=== PATIENT | female | born 2000 | race Caucasian/White ===

== ENCOUNTER 2021-05-10 22:22 | Inpatient (IN) | payer MEDICAID, SELFPAY ==
[2021-05-10] VITALS (12 sets, daily range): BP systolic 88–171; BP diastolic 41–104; PULSE 64–112; O2SAT 89–100
--- NOTE | 2021-05-10 22:22 | LDADM ---
This patient, Madeline Cornell, was admitted to Labor/Delivery/Recovery 106 on 05/10/21 at 23:06. Plans for labor, pain management and were discussed with patient. Patient/family oriented to hospital policies and general routines including ID bracelet, bed and alarms, visiting hours, pain management, procedures, bathroom and other care routines, personal items, smoking policy, room service/diet and guest tray routines, security routines, and visiting hours. Patient/Family are encouraged to report perceived risks to care and to ask questions if they do not understand what they are told or what they should do. See OBIX for further documentation.
[2021-05-11] VITALS (27 sets, daily range): BP systolic 118–146; BP diastolic 69–104; PULSE 62–139; RESP 16–18; TEMP 36.7–37.2; O2SAT 93–100; BMI 37.3
[2021-05-11 00:32] LABS: Amphetamine Screen Urine Negative (Negative); Barbiturate Screen Urine Negative (Negative); Benzodiazepines Screen Urine Negative (Negative); Cannabinoid Screen Urine Negative (Negative); Cocaine Screen Urine Negative (Negative); Methadone Screen Urine Negative (Negative); Opiate Screen Urine Negative (Negative); Phencyclidine Screen Urine Negative (Negative)
--- NOTE | 2021-05-11 01:26 | PM.OBPRVD ---
OB - Delivery Note Procedure Delivery date: 05/11/21 Procedure: vaginal delivery events: No Care (no care in office since 02/07, limited prior to that due to transportation and issues in home per pt) Induction method: none Delivery monitor: external FHT and external uterine Route of delivery: Episiotomy description: None Laceration Description: None Specimen: Yes Quantitative Blood Loss (ml): 120 Anesthesia type: Epidural Baby Date of : 05/11/21 Time of : 01:14 Weeks of gestation at delivery: 40 Infant gender: Male Weight (pounds): 6 Weight (ounces): 10 presentation: vertex Placenta delivery description: Spontaneous cord vessel description: 3 Vessels, Clamped/Cut and Delayed Cord Clamping score one minute: 8 score five minutes: 9 Narrative: CNM at bs seconds after delivery of male infant, VSS and delayed cord clamping, examination of perineum reveals .5-1mm indurated lesion, tender to touch, no visible weeping of fluid, mother and baby in stable condition
--- NOTE | 2021-05-11 01:36 | WPDOBADMIT ---
Obstetrics - Admit Note Admission Note: record reviewed. No pertinent additions to the history and/or any subsequent changes in the physical findings that are not consistent with the expected course of the were found. 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 None.
[2021-05-11 01:42] LABS: Basophils Percent Auto 0.3 % (0.2-1.2); Eosinophils Percent Auto 0.1 % (0-4.4); Hematocrit 38.2 % (37.0-47.0); Immature Granulocyte Absolute 0.08 K/mm3 (0.00-0.031); Immature Granulocyte Percent A 0.6 % (0-0.5); Lymphocytes Absolute Auto 1.43 K/mm3 (0.9-3.2); Lymphocytes Percent Auto 10.6 % (18.3-44.2); Mean Corpuscular HGB Conc 31.4 g/dl (32-36); Mean Corpuscular Hemoglobin 25.8 pg (26-34); Mean Platelet Volume 12.9 fl (7.4-10.4); Monocytes Absolute Auto 0.6 K/mm3 (0.1-0.6); Monocytes Percent Auto 4.6 % (2.6-8.5); Neutrophils Absolute Auto 11.3 K/mm3 (1.3-6.7); Neutrophils Percent Auto 83.8 % (45.5-73.1); Platelet Count Result 255 k/mm3 (150-375); Red Blood Count 4.66 M/mm3 (4.2-5.4); Red Cell Distribution Width 13.2 % (11.5-14.5); White Blood Count 13.5 K/mm3 (4.5-10.0)
[2021-05-11] MEDS: OXYTOCIN 30 UNITS/NS 500 ML 30 UNITS/500 ML BAG 125 UNITS IV CONT (02:08)
[2021-05-11] MEDS: WITCH HAZEL 40 PADS 1 PAD TOPICAL (03:34)
[2021-05-11] MEDS: BENZOCAINE 20% AER SPR (*SP) 56 GM CAN 1 SPRAY TOPICAL (03:34)
--- NOTE | 2021-05-11 03:51 | OBPPTRN ---
Patient transferred to post room #285 via wheelchair. Support person present. Oriented to unit, room, information board, rooming in, admission packet and security measures. Patient verbalizes understanding.
[2021-05-11] MEDS: IBUPROFEN 600 MG TABLET PO ×2 (08:23→19:53)
[2021-05-11] MEDS: MULTIVIT/MIN/PREN/FOL AC/IRON TABLET 1 TAB PO (08:23)
[2021-05-11] MEDS: DOCUSATE SODIUM 100 MG CAPSULE PO (08:23)
[2021-05-11] MEDS: valACYclovir HCL 500 MG TABLET 1000 MG PO ×2 (08:24→19:53)
--- NOTE | 2021-05-11 10:59 | PCCCNOTE ---
Care Coordination Note. Patient referred to CC for poor care and possible home issues. Met with pt. and her mother at bedside. Pt. reports no home issues, but that care had to do with financial issues. Pt. states her OB office could not find that she was active with Medicaid and wanted payment upfront for visits that she could not afford. Pt. reports this happened several times until they could figure it out. She is supposed to have [place], but still showing just Medicaid here. She reports plans to return home with FOB and her 2 year old. She states he and her mother are supportive. She has all necessary baby care items and is setup with [facility]. She did take community resource information. She plans to switch her 2 year old from [place] land commissioner to doctor Fraser here. RN aware of above conversation. No further CC needs.
[2021-05-12] VITALS: BP 122/81; PULSE 73; RESP 16; TEMP 36.8; O2SAT 100
[2021-05-12 05:12] LABS: Hematocrit 31.2 % (37.0-47.0); Hemoglobin 9.8 g/dL (12.0-15.0)
[2021-05-12 07:40] VITALS: BP 143/83; PULSE 95; RESP 16; TEMP 36.4; O2SAT 99
--- NOTE | 2021-05-12 07:56 | P.PNOB_ITS ---
OB - PN: Subj Subjective Date/time seen: 05/12/21 07:56 Interval history: pt doing well awaiting hsv results Patient comments: no complaints [place] baby status: doing well OB - PN: Obj Data Labs CBC & Chem 7: 05/12/21 04:00 Labs: Laboratory Results - last 24 hr 05/12/21 04:00 Hgb 9.8 L Hct 31.2 L OB - PN A/P Plan day: 1 Plan: routine care Time Spent With Patient Time: Total time spent is greater than 50% in coordination of care (as documented) at patient's floor/unit and/or counseling patient: Review of Systems Review of Systems: All systems reviewed & are unremarkable except as noted in HPI and below Exam Const: General: cooperative Orientation/consciousness: patient oriented x3 Psych: Affect: normal affect Thought content: Yes Normal thought content present Insight: Good insight present (Psych)
[2021-05-12 08:00] VITALS: PULSE 95; RESP 16; O2SAT 99
[2021-05-12 08:52] LABS: Rapid Plasma Reagin Non-Reactive (NonReactive)
[2021-05-12] MEDS: DOCUSATE SODIUM 100 MG CAPSULE PO ×2 (09:21→16:35)
[2021-05-12] MEDS: valACYclovir HCL 500 MG TABLET 1000 MG PO ×2 (09:21→20:48)
[2021-05-12] MEDS: POLYSACCHARIDE IRON COMPLEX 150 MG CAPSULE PO ×2 (09:21→16:35)
[2021-05-12] MEDS: ACETAMINOPHEN 325 MG TABLET 650 MG PO (09:21)
[2021-05-12 21:00] VITALS: BP 128/83; PULSE 75; RESP 16; TEMP 36.9
--- NOTE | 2021-05-13 07:13 | PM.OBPNVD ---
OB - PN: Subj Subjective Date/time seen: 05/13/21 07:13 Interval history: pt doing well awaiting hsv results Patient comments: no complaints [place] baby status: doing well OB - PN: Obj Data Labs CBC & Chem 7: 05/12/21 04:00 Labs: Laboratory Results - last 24 hr 05/11/21 01:26 RPR Non-reactive OB - PN A/P Plan day: 2 Plan: routine care and discharge home (Pt has had 3 elevated blood pressures. D/t poor care I would like to keep for the 72 hour stay recommended with GHTN.) Time Spent With Patient Time: Total time spent is greater than 50% in coordination of care (as documented) at patient's floor/unit and/or counseling patient: Time with patient: less than 15 minutes Review of Systems Review of Systems: All systems reviewed & are unremarkable except as noted in HPI and below Exam Narrative: Fundus firm and vaginal flow controlled. No lower ext redness, warmth, or edema. Negative homans. Denies h/a, v/d or e/p. Reflexes normal. Const: General: comfortable Chest: Breast/axilla inspection: normal inspection of the breasts Resp: Effort & Inspection: normal respiratory effort Cardio: Rate: regular rate GI: GI Palp: Yes Soft to palpation Psych: Appearance: grossly normal Affect: normal affect Attitude: cooperative Thought content: Yes Normal thought content present Judgement: Good judgement present (Psych)
[2021-05-13 07:30] VITALS: BP 135/85; PULSE 87; RESP 16; TEMP 36.8
[2021-05-13] MEDS: DOCUSATE SODIUM 100 MG CAPSULE PO (07:38)
[2021-05-13] MEDS: IBUPROFEN 600 MG TABLET PO (07:38)
[2021-05-13] MEDS: POLYSACCHARIDE IRON COMPLEX 150 MG CAPSULE PO (07:38)
[2021-05-13] MEDS: valACYclovir HCL 500 MG TABLET 1000 MG PO ×2 (07:39→22:45)
[2021-05-13 08:07] LABS: Mean Corpuscular HGB Conc 31.3 g/dl (32-36); Mean Corpuscular Hemoglobin 25.9 pg (26-34); Mean Corpuscular Volume 82.9 fl (80-100); Mean Platelet Volume 11.2 fl (7.4-10.4); Platelet Count Result 178 k/mm3 (150-375); Red Blood Count 3.86 M/mm3 (4.2-5.4); Red Cell Distribution Width 13.4 % (11.5-14.5)
[2021-05-13 08:17] LABS: Alanine Aminotransferase 26 U/L (4-35); Albumin Level 3.4 g/dL (3.5-5.1); Alkaline Phosphatase 177 U/L (38-126); Anion Gap 8 mmol/L (8-16); Aspartate Amino Transferase 31 U/L (14-36); Bilirubin,Total < 0.1 mg/dL (0.2-1.3); Blood Urea Nitrogen 8 mg/dL (7-17); Calcium 9.1 mg/dL (8.4-10.2); Carbon Dioxide 25 mmol/L (22-30); Chloride 108 mmol/L (98-107); Estimated CRCL calculation 136 ml/min; Estimated Glomerular Filt Rate > 60; Glucose 101 mg/dL (65-110); Potassium 3.8 mmol/L (3.4-5.0); Sodium 141 mmol/L (137-145); Uric Acid 6.2 mg/dL (2.5-7.5)
[2021-05-13 20:30] VITALS: BP 130/94; PULSE 93; RESP 18; TEMP 36.8; O2SAT 99
[2021-05-14 08:00] VITALS: BP 129/84; PULSE 77; RESP 18; TEMP 36.9; O2SAT 97
[2021-05-14] MEDS: valACYclovir HCL 500 MG TABLET 1000 MG PO (08:27)
--- NOTE | 2021-05-14 09:31 | PM.OBPNVD ---
OB - PN: Subj Subjective Date/time seen: 05/14/21 09:32 Interval history: pt doing well awaiting hsv results Patient comments: no complaints baby status: doing well OB - PN: Obj Data Labs CBC & Chem 7: 05/13/21 08:00 05/13/21 08:00 OB - PN A/P Plan day: 3 Plan: routine care and discharge home (F/U in 1 week for bp check) Time Spent With Patient Time: Total time spent is greater than 50% in coordination of care (as documented) at patient's floor/unit and/or counseling patient: Time with patient: less than 15 minutes Review of Systems Review of Systems: All systems reviewed & are unremarkable except as noted in HPI and below Exam Narrative: Fundus firm and vaginal flow controlled. No lower ext redness, warmth, or edema. Negative homans. Denies h/a, v/d or e/p. Reflexes normal. Const: General: comfortable Chest: Breast/axilla inspection: normal inspection of the breasts Resp: Effort & Inspection: normal respiratory effort Cardio: Rate: regular rate GI: GI Palp: Yes Soft to palpation Psych: Appearance: grossly normal Affect: normal affect Attitude: cooperative Thought content: Yes Normal thought content present Judgement: Good judgement present (Psych)
--- NOTE | 2021-05-14 09:33 | PM.OBDSVD ---
DS: Admitting Diagnosis Discharge Date 05/14/21 Admitting Diagnosis Labor OB - DS: Summary OB Procedures : None OB Procedures Intrapartum: Spontaneous Vag Delivery OB Procedures: : None Time Spent with Patient Time attestation: Total time spent providing and/or coordinating discharge services: DS: Data Data Completed and Pending Completed studies during hospitalization: Pending at discharge 05/11/21 01:28 Surgical [PTH] Routine Discharge Plan Discharge Attending physician on discharge: Kathy Covington Discharging Clinician: Amanda Burnett Patient Disposition: Home, Self-Care Activity: pelvic rest Diet: as tolerated Patient Instructions: Antibiotic Form Stand Alone Forms: General Discharge Information Follow-up/Referrals: Kathy Covington, GIANAM [Certified Nurse Protective Signal Installer] - Discharge Medications: Continued 27 mg iron- 0.8 mg Tablet 1 tablet PO DAILY RF: 0 Date of admission: 05/10/21 23:06 Primary Care Provider: PHYSICIAN,AUTOMOBILES SALESPERSON Admitting Provider: Oniel Gutiérrez Attending physician on admission: Oniel Gutiérrez Condition: Stable
--- NOTE | 2021-05-14 14:17 | PC.NURSE ---
Patient viewed the discharge video Mother & Baby Care, The First Two Weeks . Patient was given the opportunity and encouraged to ask questions. Patient verbalized understanding of information shared and has been given the mother/baby guide for home reference.
[2021-05-17 09:34] VITALS: BP 124/87; PULSE 81; RESP 20; TEMP 36.8; O2SAT 100
== END 2021-05-14 14:48 | disposition home or self-care (01) | DRG 560 ==
LOC: ANHLDR 05-11 01:23 → ANHOB2 05-11 03:58
PROVIDERS: Advanced Practice Midwife; Admitting Provider Obstetrics & Gynecology; Visit Provider Obstetrics & Gynecology
DX: O98.32 Other infections with a predominantly sexual mode of transmission complicating childbirth (principal); Z37.0 Single live birth; Z3A.40 40 weeks gestation of pregnancy; A60.00 Herpesviral infection of urogenital system, unspecified
CPT/HCPCS: 36415; 80053; 80307; 84550; 85014; 85018; 85025; 85027; 86592; 86850; 86900; 86901; 87255; 87529; 88307; A9270; J2590

== ENCOUNTER 2024-03-06 14:57 | Outpatient (CLI) | payer OTHER, SELFPAY ==
--- NOTE | ~2024-03-06 | US_ITS ---
EXAMINATION: US OB follow up DATE: 03/06/2024 16:36 INDICATION: Uncertain dates. TECHNIQUE: Real-time ultrasound of the pelvis was performed. COMPARISON: None. FINDINGS: There is a single living fetus in vertex presentation. The placenta is anterior. heart rate is 152 beats per minute (bpm). The amniotic fluid volume is subjectively normal. The following biometric data were obtained: Biparietal diameter (BPD): 3.9 cm; head circumference (HC): 14.9 cm; abdominal circumference (AC): 12 .0 cm; femur length (FL): 2.5 cm. These measurements are concordant. Estimated weight is 205 g +/- 31 g, which correlates with the 42nd percentile when 08/09/24 is used as estimated date of delivery. As single measurements, these parameters are each equal to the following estimated gestational ages: BPD: 17 weeks 6 days. HC: 18 weeks 0 days. AC: 17 weeks 5 days. FL: 17 weeks 4 days. estimated gestational age based solely on measurements from this exam is 17 weeks 6 days +/- 1 weeks 2 days. IMPRESSION: 1. Single living fetus in vertex presentation. 2. Estimated weight is 205 g +/- 31 g, which correlates with the 42nd percentile when 08/09/24 is used as estimated date of delivery. Reviewed, dictated and finalized at location E. IMPRESSION: 1. Single living fetus in vertex presentation. 2. Estimated weight is 205 g +/- 31 g, which correlates with the 42nd pe rcentile when 08/09/24 is used as estimated date of delivery.
== END 2024-03-06 14:58 | disposition home or self-care (01) ==
PROVIDERS: Visit Provider Nurse Practitioner Obstetrics & Gynecology
DX: Z36.9 Encounter for antenatal screening, unspecified (principal); Z3A.17 17 weeks gestation of pregnancy
CPT/HCPCS: 76816

== ENCOUNTER 2024-04-24 13:41 | Outpatient (CLI) | payer OTHER, SELFPAY ==
[2024-04-24 14:56] LABS: Basophils Percent Auto 0.3 % (0.2-1.2); Eosinophils Percent Auto 0.6 % (0-4.4); Hematocrit 31.2 % (37.0-47.0); Hemoglobin 10.6 g/dL (12.0-15.0); Immature Granulocyte Absolute 0.02 K/mm3 (0.00-0.031); Immature Granulocyte Percent A 0.3 % (0-0.5); Lymphocytes Absolute Auto 1.41 K/mm3 (0.9-3.2); Lymphocytes Percent Auto 21.8 % (18.3-44.2); Mean Corpuscular Hemoglobin 29.6 pg (26-34); Mean Corpuscular Volume 87.2 fl (80-100); Mean Platelet Volume 10.7 fl (7.4-10.4); Monocytes Absolute Auto 0.4 K/mm3 (0.1-0.6); Monocytes Percent Auto 6.5 % (2.6-8.5); Neutrophils Absolute Auto 4.6 K/mm3 (1.3-6.7); Neutrophils Percent Auto 70.5 % (45.5-73.1); Platelet Count Result 196 k/mm3 (150-375); Red Blood Count 3.58 M/mm3 (4.2-5.4); Red Cell Distribution Width 12.4 % (11.5-14.5); White Blood Count 6.5 K/mm3 (4.5-10.0)
[2024-04-24 15:20] LABS: Glucose 1 Hour PP 50gm Dose 173 mg/dL
== END 2024-04-24 13:42 | disposition home or self-care (01) ==
LOC: ANHLAB 13:42
PROVIDERS: Visit Provider Nurse Practitioner Obstetrics & Gynecology
DX: Z34.90 Encounter for supervision of normal pregnancy, unspecified, unspecified trimester (principal)
CPT/HCPCS: 36415; 82947; 85025

== ENCOUNTER 2024-05-06 09:36 | Observation (INO) | payer OTHER, SELFPAY ==
[2024-05-06 10:30] VITALS: BP 105/72; PULSE 90
[2024-05-06 10:30] LABS: Add Urine Microscopic? YES; Appearance Urine Cloudy (Clear); Bacteria Urine 2+ /hpf; Bilirubin Urine Negative (Negative); Blood Urine Negative (Negative); Color Urine Yellow (Yellow); Glucose Urine UA Negative (Negative); Ketones Urine Negative (Negative); Leukocyte Esterase Ur 2+ LEU/UL (Negative); Nitrate Urine Negative (Negative); Non Pathogenic Casts 0-2; Protein Urine Trace mg/dL (Negative); RBC Urine 0-2 /hpf (0-2); Specific Grav Ur 1.021 (1.001-1.035); Squamous Epithelial Cell Urine Many /hpf (Few); WBC Urine 21-50 /hpf (0-3); pH Urine 7.5 (5.0-9.0)
[2024-05-06 10:45] LABS: Basophils Percent Auto 0.3 % (0.2-1.2); Eosinophils Absolute Auto 0.1 K/mm3 (0-0.3); Eosinophils Percent Auto 1.4 % (0-4.4); Hematocrit 30.5 % (37.0-47.0); Hemoglobin 10.1 g/dL (12.0-15.0); Immature Granulocyte Absolute 0.03 K/mm3 (0.00-0.031); Immature Granulocyte Percent A 0.4 % (0-0.5); Lymphocytes Absolute Auto 1.55 K/mm3 (0.9-3.2); Lymphocytes Percent Auto 21.9 % (18.3-44.2); Mean Corpuscular HGB Conc 33.1 g/dl (32-36); Mean Corpuscular Hemoglobin 29.2 pg (26-34); Mean Corpuscular Volume 88.2 fl (80-100); Monocytes Absolute Auto 0.5 K/mm3 (0.1-0.6); Monocytes Percent Auto 7.2 % (2.6-8.5); Neutrophils Absolute Auto 4.9 K/mm3 (1.3-6.7); Neutrophils Percent Auto 68.8 % (45.5-73.1); Platelet Count Result 173 k/mm3 (150-375); Red Blood Count 3.46 M/mm3 (4.2-5.4); Red Cell Distribution Width 12.3 % (11.5-14.5); White Blood Count 7.1 K/mm3 (4.5-10.0)
[2024-05-06 10:51] LABS: Creatinine Urine 129.2 mg/dL; Total Protein Urine Random 6 mg/dL; Ur Ttl Prot Creatinine Ratio 0.05 mg/mg (0-0.20)
[2024-05-06 10:55] LABS: Alanine Aminotransferase 21 U/L (6-35); Albumin Level 3.2 g/dL (3.5-5.1); Alkaline Phosphatase 94 U/L (38-126); Anion Gap 8 mmol/L (4-12); Aspartate Amino Transferase 19 U/L (14-36); Bilirubin,Total 0.2 mg/dL (0.2-1.3); Blood Urea Nitrogen 5 mg/dL (7-17); Calcium 8.2 mg/dL (8.4-10.2); Carbon Dioxide 21 mmol/L (22-30); Chloride 105 mmol/L (98-107); Estimated Glomerular Filt Rate > 60; Glucose 97 mg/dL (65-110); Potassium 3.8 mmol/L (3.4-5.0); Sodium 134 mmol/L (137-145); Uric Acid 4.2 mg/dL (2.5-7.5)
--- NOTE | 2024-05-06 10:57 | PC.NURSE ---
1057: RN phoned Dr. Kasper to inform her of patient's complaints of back pain she is rating a 3 out of 10 , cramping, BRUNER, nausea, and dizziness. OB aware patient has only had one glass of water today and that RN has snacks and water at bedside and that patient was encouraged to eat and drink more. OB aware patient has not taken any Tylenol. OB in the office reviewing patient's lab results. Orders to instruct patient to take iron and Tylenol for her pain. Orders for RN to send urine for a culture.
--- NOTE | 2024-05-06 11:14 | OBADM ---
This patient, Madeline Cornell, admitted to the OB room OB Post 113 for observation. Patient/family oriented to hospital policies and general routines including ID bracelet, bed and alarms, visiting hours, pain management, procedures, bathroom and other care routines, personal items, smoking policy, room service/diet, and visiting hours. Patient/Family are encouraged to report perceived risks to care and to ask questions if they do not understand what they are told or what they should do.
[2024-05-06 11:28] VITALS: BP 105/72; PULSE 90
--- NOTE | 2024-05-25 10:06 | PM.OBTRLD ---
OB - Triage/Final Diagnosis Visit Information Comments/Additional reasons for admission: I have assessed the risk for this patient, Madeline Cornell, and determined that she would benefit from observation care. Evaluation Laboratory results: Laboratory Tests 05/06/24 05/06/24 10:10 10:32 WBC 7.1 RBC 3.46 L Hgb 10.1 L Hct 30.5 L MCV 88.2 MCH 29.2 MCHC 33.1 RDW 12.3 Plt Count 173 MPV 11.0 H Immature Gran % (Auto) 0.4 Neut % (Auto) 68.8 Lymph % (Auto) 21.9 [place] % (Auto) 7.2 Eos % (Auto) 1.4 Baso % (Auto) 0.3 Lymph # (Auto) 1.55 [place] # (Auto) 0.5 Eos # (Auto) 0.1 Baso # (Auto) 0.0 Abs Immat Gran (auto) 0.03 Absolute Neuts (auto) 4.9 Absolute Nucleated RBC 0.000 Nucleated RBC % 0.0 Sodium 134 L Potassium 3.8 Chloride 105 Carbon Dioxide 21 L Anion Gap 8 BUN 5 L Creatinine 0.40 L Estim Creat Clear Calc Not Reportable Estimated GFR > 60 Glucose 97 Uric Acid 4.2 Calcium 8.2 L Total Bilirubin 0.2 AST 19 ALT 21 Alkaline Phosphatase 94 Total Protein 7.0 Albumin 3.2 L Urine Color Yellow Urine Appearance Cloudy H Urine pH 7.5 Ur Specific [place] 1.021 Urine Protein Trace Urine Glucose (UA) Negative Urine Ketones Negative Ur Blood (Man) Negative Urine Nitrate Negative Urine Bilirubin Negative Urine Urobilinogen 1.0 Leukocyte Esterase Rfl 2+ H Urine RBC 0-2 Urine WBC 21-50 H Ur Squamous Epith Cells Many H Urine Bacteria 2+ H Urine Casts 0-2 U Random Total Protein 6 Urine Creatinine 129.2 Protein/Creat Ratio 2 0.05 Final Diagnosis (1) Back pain affecting : Code(s): O99.891 - Other specified diseases and conditions complicating ; M54.9 - Dorsalgia, unspecified Status: Acute
== END 2024-05-06 11:30 | disposition home or self-care (01) ==
PROVIDERS: Admitting Provider Obstetrics & Gynecology; Visit Provider Obstetrics & Gynecology
DX: O99.891 Other specified diseases and conditions complicating pregnancy (principal); M54.9 Dorsalgia, unspecified; Z3A.00 Weeks of gestation of pregnancy not specified
CPT/HCPCS: 36415; 59025; 80053; 81001; 82570; 84156; 84550; 85025; 87086; G0378; G0379

== ENCOUNTER 2024-06-08 11:36 | Outpatient (CLI) | payer OTHER, SELFPAY ==
[2024-06-08 12:06] LABS: Basophils Percent Auto 0.4 % (0.2-1.2); Eosinophils Absolute Auto 0.2 K/mm3 (0-0.3); Hemoglobin 10.9 g/dL (12.0-15.0); Immature Granulocyte Absolute 0.04 K/mm3 (0.00-0.031); Immature Granulocyte Percent A 0.5 % (0-0.5); Lymphocytes Absolute Auto 1.86 K/mm3 (0.9-3.2); Lymphocytes Percent Auto 23.3 % (18.3-44.2); Mean Corpuscular Volume 84.8 fl (80-100); Monocytes Absolute Auto 0.6 K/mm3 (0.1-0.6); Monocytes Percent Auto 7.3 % (2.6-8.5); Neutrophils Absolute Auto 5.2 K/mm3 (1.3-6.7); Neutrophils Percent Auto 65.5 % (45.5-73.1); Platelet Count Result 192 k/mm3 (150-375); Red Blood Count 3.89 M/mm3 (4.2-5.4); Red Cell Distribution Width 12.7 % (11.5-14.5)
[2024-06-08 12:56] LABS: HIV 1/2 Ab P24 Ag Result Negative (Negative)
[2024-06-08 14:07] LABS: Rapid Plasma Reagin Non-Reactive (NonReactive)
== END 2024-06-08 11:37 | disposition home or self-care (01) ==
LOC: ANHLAB 11:37
PROVIDERS: Visit Provider Nurse Practitioner Family
DX: Z34.90 Encounter for supervision of normal pregnancy, unspecified, unspecified trimester (principal); Z3A.00 Weeks of gestation of pregnancy not specified
CPT/HCPCS: 36415; 85025; 86592; 86703; G0432

== ENCOUNTER 2024-07-31 12:15 | Outpatient (CLI) | payer OTHER, SELFPAY ==
[2024-07-31 13:00] VITALS: BP 121/72; PULSE 87
[2024-07-31 13:07] LABS: Basophils Percent Auto 0.2 % (0.2-1.2); Eosinophils Absolute Auto 0.1 K/mm3 (0-0.3); Eosinophils Percent Auto 0.6 % (0-4.4); Hematocrit 31.4 % (37.0-47.0); Hemoglobin 10.3 g/dL (12.0-15.0); Immature Granulocyte Absolute 0.04 K/mm3 (0.00-0.031); Immature Granulocyte Percent A 0.5 % (0-0.5); Lymphocytes Absolute Auto 1.99 K/mm3 (0.9-3.2); Lymphocytes Percent Auto 24.1 % (18.3-44.2); Mean Corpuscular HGB Conc 32.8 g/dl (32-36); Mean Corpuscular Hemoglobin 26.8 pg (26-34); Mean Corpuscular Volume 81.6 fl (80-100); Mean Platelet Volume 12.2 fl (7.4-10.4); Monocytes Absolute Auto 0.5 K/mm3 (0.1-0.6); Monocytes Percent Auto 6.5 % (2.6-8.5); Neutrophils Absolute Auto 5.6 K/mm3 (1.3-6.7); Neutrophils Percent Auto 68.1 % (45.5-73.1); Platelet Count Result 176 k/mm3 (150-375); Red Blood Count 3.85 M/mm3 (4.2-5.4); Red Cell Distribution Width 13.7 % (11.5-14.5); White Blood Count 8.3 K/mm3 (4.5-10.0)
[2024-07-31 13:15] VITALS: BP 119/81; PULSE 108
[2024-07-31 13:25] LABS: Alanine Aminotransferase 69 U/L (6-35); Albumin Level 3.3 g/dL (3.5-5.1); Alkaline Phosphatase 158 U/L (38-126); Anion Gap 6 mmol/L (4-12); Aspartate Amino Transferase 43 U/L (14-36); Bilirubin,Total 0.4 mg/dL (0.2-1.3); Blood Urea Nitrogen 7 mg/dL (7-17); Calcium 8.3 mg/dL (8.4-10.2); Carbon Dioxide 19 mmol/L (22-30); Chloride 111 mmol/L (98-107); Estimated Glomerular Filt Rate > 60; Glucose 138 mg/dL (65-110); Potassium 3.4 mmol/L (3.4-5.0); Sodium 136 mmol/L (137-145); Uric Acid 6.1 mg/dL (2.5-7.5)
[2024-07-31 13:26] LABS: Add Urine Microscopic? YES; Appearance Urine Cloudy (Clear); Bacteria Urine 4+ /hpf; Bilirubin Urine 1+ (Negative); Blood Urine Negative (Negative); Color Urine Dark Yellow (Yellow); Glucose Urine UA Negative (Negative); Ketones Urine Trace mg/dL (Negative); Leukocyte Esterase Ur 2+ LEU/UL (Negative); Need Manual Microscopic Reviewed; Nitrate Urine Negative (Negative); Protein Urine 1+ mg/dL (Negative); RBC Urine 0-2 /hpf (0-2); Specific Grav Ur 1.033 (1.001-1.035); Squamous Epithelial Cell Urine Many /hpf (Few); WBC Urine >100 /hpf (0-3); pH Urine 6.5 (5.0-9.0)
[2024-07-31 13:30] VITALS: BP 125/79; PULSE 105
[2024-07-31 13:45] VITALS: BP 122/81; PULSE 98
--- NOTE | 2024-07-31 13:48 | PC.NURSE ---
Dr Kasper informed of BP's, Lab results and Informed of variable decel that was noted and that FHT's are reactive after. Ok to dc home, patient to follow up in office on Saturday.
[2024-07-31 14:00] VITALS: BP 128/87; PULSE 101
[2024-07-31 14:04] LABS: Creatinine Urine 319.4 mg/dL; Total Protein Urine Random 6 mg/dL; Ur Ttl Prot Creatinine Ratio 0.02 mg/mg (0-0.20)
[2024-07-31 14:06] VITALS: BP 121/72; PULSE 87
== END 2024-07-31 14:10 | disposition home or self-care (01) ==
LOC: ANHOBOP 12:20 → ANHOBPP 12:23
PROVIDERS: Visit Provider Obstetrics & Gynecology
DX: O13.9 Gestational [pregnancy-induced] hypertension without significant proteinuria, unspecified trimester (principal); Z3A.00 Weeks of gestation of pregnancy not specified
CPT/HCPCS: 36415; 59025; 80053; 81001; 82570; 84156; 84550; 85025; 87086; 99199

== ENCOUNTER 2024-08-07 08:50 | Inpatient (IN) | payer OTHER, SELFPAY ==
[2024-08-07] VITALS (57 sets, daily range): BP systolic 101–136; BP diastolic 59–101; PULSE 68–146; RESP 16–18; TEMP 36.6–37.4; O2SAT 79–100; BMI 33.2
[2024-08-07 09:35] LABS: Basophils Percent Auto 0.4 % (0.2-1.2); Eosinophils Percent Auto 0.2 % (0-4.4); Hemoglobin 12.2 g/dL (12.0-15.0); Immature Granulocyte Absolute 0.03 K/mm3 (0.00-0.031); Immature Granulocyte Percent A 0.4 % (0-0.5); Lymphocytes Absolute Auto 2.01 K/mm3 (0.9-3.2); Lymphocytes Percent Auto 24.5 % (18.3-44.2); Mean Corpuscular Hemoglobin 26.6 pg (26-34); Mean Corpuscular Volume 80.8 fl (80-100); Mean Platelet Volume 12.6 fl (7.4-10.4); Monocytes Absolute Auto 0.5 K/mm3 (0.1-0.6); Monocytes Percent Auto 6.2 % (2.6-8.5); Neutrophils Absolute Auto 5.6 K/mm3 (1.3-6.7); Neutrophils Percent Auto 68.3 % (45.5-73.1); Platelet Count Result 182 k/mm3 (150-375); Red Blood Count 4.58 M/mm3 (4.2-5.4); White Blood Count 8.2 K/mm3 (4.5-10.0)
[2024-08-07] MEDS: ONDANSETRON INJ 4 MG/2 ML VIAL IV PUSH (09:36)
[2024-08-07] MEDS: LACTATED RINGERS 1,000 ML 125 ML IV CONT ×2 (09:36→10:51)
[2024-08-07] MEDS: fentaNYL CITRATE INJ (*CRX) 100 MCG/2 ML VIAL 50 MCG IV PUSH (09:37)
[2024-08-07 09:45] LABS: Alanine Aminotransferase 60 U/L (6-35); Albumin Level 3.9 g/dL (3.5-5.1); Alkaline Phosphatase 207 U/L (38-126); Anion Gap 7 mmol/L (4-12); Aspartate Amino Transferase 47 U/L (14-36); Bilirubin,Total 0.7 mg/dL (0.2-1.3); Blood Urea Nitrogen 9 mg/dL (7-17); Calcium 9.6 mg/dL (8.4-10.2); Carbon Dioxide 19 mmol/L (22-30); Chloride 109 mmol/L (98-107); Estimated Glomerular Filt Rate > 60; Glucose 85 mg/dL (65-110); Sodium 135 mmol/L (137-145)
--- NOTE | 2024-08-07 09:47 | LDADM ---
This patient, Madeline Cornell, was admitted to Labor/Delivery/Recovery 105 on 08/07/24 at 08:50. Plans for labor, pain management and were discussed with patient. Patient/family oriented to hospital policies and general routines including ID bracelet, bed and alarms, visiting hours, pain management, procedures, bathroom and other care routines, personal items, smoking policy, room service/diet and guest tray routines, security routines, and visiting hours. Patient/Family are encouraged to report perceived risks to care and to ask questions if they do not understand what they are told or what they should do. See OBIX for further documentation.
[2024-08-07 09:49] LABS: Uric Acid 6.9 mg/dL (2.5-7.5)
[2024-08-07 10:22] LABS: Rapid Plasma Reagin Non-Reactive (NonReactive)
[2024-08-07 10:24] LABS: HIV 1/2 Ab P24 Ag Result Negative (Negative)
--- NOTE | 2024-08-07 10:26 | P.HP_ITS ---
H&P: HPI History of Present Illness Date/Time: 08/07/24 10:26 Chief Complaint: Contractions Narrative: patient is a 24-year-old at 39 weeks by EDC of 08/09/2024. She presented with complaints of contractions. Cervix 5 cm. She was admitted for labor. course significant for ASCUS Pap smear colpo no concerning severe dysplasia findings. Father child with VSD patient has had a echo. There is a possible small apical VSD. No signs of cardiac dysfunction. [facility] has cleared her for delivery at [place]. She is aware to get a echo within 1-2 weeks after delivery. course also significant for 1 isolated elevated blood pressure her PIH workup was negative the blood pressures were not sustained. Urine protein normal. There was an incidental elevated liver function test last week with plans to repeat this week but patient presented in labor. Will check liver function tests on admission labs. Review of Systems Review of Systems: All systems reviewed & are unremarkable except as noted in HPI and below Constitutional: Constitutional: Reports no additional constitutional complaints and Denies headache(s) Eyes: Eyes: Denies spots in vision ENT: Reports system reviewed and no additional complaints, except as documented and Denies headache(s) Cardiovascular: Cardiovascular: Denies chest pain and Denies dyspnea Respiratory: Respiratory: Denies dyspnea Gastrointestinal: Gastrointestinal: Reports no additional gastrointestinal complaints Genitourinary: Genitourinary: Reports amenorrhea Musculoskeletal: Musculoskeletal: Reports no additional musculoskeletal complaints Integumentary/Breasts: Skin/Breast: Denies breast mass and Denies rash Neurologic: Denies headache(s) Psychiatric: Psychiatric: Reports no additional psychiatric complaints [facility] Surgical History Surgical History H/O eye surgery Family History Family History Father Diabetes mellitus Father Hypertension Sibling Asthma Social History Social History Smoking status: Former smoker Additional smoking assessment comments: social smoker, quit a long time ago. Substance use: never Do You Feel Safe in your Home?: Yes Lack of Transportation: No Lack of Food: Never True Current Housing: I Have Housing Concerned About Future Housing: No Difficulty Paying Gas/Electric Bills: No Difficulty Paying for Meds: No Currently Unemployed: No Education: High School Diploma/GED Difficulty w/ Childcare or Family Care: No Spiritual care concerns: No Meds Home Medications and Allergies Home Medications ?Medication ?Instructions ?Recorded ?Confirmed ?Type vitamin-ferrous sulfate 1 tablet PO DAILY 05/11/21 08/07/24 History 27 mg iron-folic acid 0.8 mg tablet ferrous sulfate 325 mg (65 mg 325 mg PO DAILY 05/27/24 08/07/24 History iron) tablet nitrofurantoin 100 mg PO Q12H #10 caps 07/31/24 08/07/24 Rx monohydrate/macrocrystals 100 mg capsule (Macrobid) Allergies Allergy/AdvReac Type Severity Reaction Status Date / Time No Known Allergies Allergy Verified 07/31/24 12:01 Vital Signs Vital Signs - 24 hr 08/07/24 09:27 08/07/24 09:30 08/07/24 09:45 Pulse Rate 120 H 125 H 95 Blood Pressure 135/101 H 132/94 H 134/95 H Pulse Oximetry Oxygen Delivery 08/07/24 09:46 08/07/24 10:00 08/07/24 10:05 Pulse Rate 83 129 H Blood Pressure 120/59 L 131/93 H Pulse Oximetry 94 Oxygen Delivery Room Air 08/07/24 10:10 08/07/24 10:13 08/07/24 10:15 Pulse Rate 77 104 H 105 H Blood Pressure 130/76 115/86 113/81 Pulse Oximetry 100 99 Oxygen Delivery 08/07/24 10:17 08/07/24 10:20 08/07/24 10:22 Pulse Rate 119 H 104 H 106 H Blood Pressure 119/83 124/80 120/74 Pulse Oximetry 98 Oxygen Delivery 08/07/24 10:24 08/07/24 10:25 Pulse Rate 105 H Blood Pressure 124/83 Pulse Oximetry 98 Oxygen Delivery Exam Const: General: no acute distress Eyes: General: appearance normal, both eyes and all related structures Resp: Effort & Inspection: normal respiratory effort Cardio: Rate: regular rate GI: Other: Gravid no fundal tenderness no right upper quadrant pain Skin: General skin exam: no rashes or lesions noted Neuro: Cognition (Neuro): normal cognition Extrem: General: normal to inspection Psych: Mental Status: mental status grossly normal H&P: Results Labs Labs: Short CBC 08/07/24 Range/Units 09:28 WBC 8.2 (4.5-10.0) K/mm3 Hgb 12.2 (12.0-15.0) g/dL Hct 37.0 (37.0-47.0) % Plt Count 182 (150-375) k/mm3 BMP 08/07/24 09:28 Sodium 135 L Potassium 4.0 Chloride 109 H Carbon Dioxide 19 L BUN 9 Creatinine 0.70 Glucose 85 Calcium 9.6 Liver Function 08/07/24 Range/Units 09:28 Total Bilirubin 0.7 (0.2-1.3) mg/dL AST 47 H (14-36) U/L ALT 60 H (6-35) U/L Alkaline Phosphatase 207 H (38-126) U/L Albumin 3.9 (3.5-5.1) g/dL Assessment and Plan Assessment and plan (1) Active labor: Status: Acute Assessment and Plan: 1. Admit 2. Admit labs and liver function tests 3. Anticipate vaginal delivery. For augmentation with amniotomy and/or Pitocin if needed.
[2024-08-07] MEDS: OXYTOCIN 30 UNITS/NS 500 ML 30 UNITS/500 ML BAG 999 UNITS IV CONT (12:20)
--- NOTE | 2024-08-07 12:40 | PM.OBPRVD ---
OB - Vaginal Delivery Note Procedure Delivery date: 08/07/24 Events: Other (Fetus with known small VSD. Abnormal 1 hour- pt refused 3 hr.) Induction method: None Delivery monitor: External FHT Route of delivery: Episiotomy description: None Laceration Description: None Quantitative Blood Loss (ml): 75 Anesthesia type: Epidural Disposition: Floor Complications: No immediate complications Narrative: She was admitted in active labor. She had an epidural placed upon request. Shortly after the epidural was dosed she had spontaneous rupture membranes clear. She progressed to complete and delivered a male over intact perineum. Infant's nose and mouth was suctioned at the perineum shoulders were delivered with gentle traction anteriorly and the rest the infant was delivered. Infant was vigorously crying and placed on maternal abdomen delayed cord clamping for a minute until cord was a pulsatile. Cord was then doubly clamped and cut. Cord blood and cord gases obtained. Pitocin started. Placenta delivered spontaneously and intact there was trailing membranes. The lower uterine segment was swept and small amount residual membranes were obtained with the ring forceps. Lower uterine segment was swept again no tissue obtained. Patient had good tone of the uterus throughout. Baby Date of : 08/07/24 Time of : 12:17 Gestational Age by Date: 39 Infant gender: Male presentation: vertex position: Right Occiput Anterior Placenta delivery description: Spontaneous and Other (see narrative) Cord Vessel Description: 3 Vessels score one minute: 9 score five minutes: 9
[2024-08-07] MEDS: OXYTOCIN 30 UNITS/NS 500 ML 30 UNITS/500 ML BAG 125 UNITS IV CONT (12:52)
[2024-08-07] MEDS: WITCH HAZEL 40 PADS 1 PAD TOPICAL (16:00)
--- NOTE | 2024-08-07 16:20 | OBPPTRN ---
Patient transferred to post room #292 via wheelchair. Support person present. Oriented to unit, room, information board, rooming in, admission packet and security measures. Patient verbalizes understanding.
--- NOTE | 2024-08-07 16:20 | OBPPTRN ---
Patient transferred to post room # via ( ). Support person present. Oriented to unit, room, information board, rooming in, admission packet and security measures. Patient verbalizes understanding.
[2024-08-07] MEDS: IBUPROFEN 600 MG TABLET PO (16:51)
[2024-08-08 04:40] VITALS: BP 115/79; PULSE 62; RESP 18; TEMP 36.8
[2024-08-08] MEDS: IBUPROFEN 600 MG TABLET PO ×2 (04:50→12:07)
[2024-08-08 04:52] LABS: Hematocrit 33.5 % (37.0-47.0); Hemoglobin 10.8 g/dL (12.0-15.0)
[2024-08-08 07:38] VITALS: BP 132/95; PULSE 86; RESP 18; TEMP 36.4; O2SAT 100
[2024-08-08] MEDS: DOCUSATE SODIUM 100 MG CAPSULE PO (07:38)
[2024-08-08] MEDS: MULTIVIT/MIN/PREN/FOL AC/IRON TABLET 1 TAB PO (07:38)
--- NOTE | 2024-08-08 07:44 | P.PNOB_ITS ---
OB - PN: Subj Subjective Date/time seen: 08/08/24 07:44 Narrative: PPD#1 Madeline reports doing well today. 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 Her pain is controlled. She is tolerating regular diet, voiding, passing gas, and ambulating without issues. She is bottle feeding. She would like her son circumcised. She would also like to go home today. OB - PN: Obj Data Labs 08/08/24 04:46 08/07/24 09:28 Labs: Laboratory Results - last 24 hr 08/07/24 08/08/24 09:28 04:46 WBC 8.2 RBC 4.58 Hgb 12.2 10.8 L Hct 37.0 33.5 L MCV 80.8 MCH 26.6 MCHC 33.0 RDW 14.0 Plt Count 182 MPV 12.6 H Immature Gran % (Auto) 0.4 Neut % (Auto) 68.3 Lymph % (Auto) 24.5 [place] % (Auto) 6.2 Eos % (Auto) 0.2 Baso % (Auto) 0.4 Lymph # (Auto) 2.01 [place] # (Auto) 0.5 Eos # (Auto) 0.0 Baso # (Auto) 0.0 Abs Immat Gran (auto) 0.03 Absolute Neuts (auto) 5.6 Absolute Nucleated RBC 0.000 Nucleated RBC % 0.0 Sodium 135 L Potassium 4.0 Chloride 109 H Carbon Dioxide 19 L Anion Gap 7 BUN 9 Creatinine 0.70 Estim Creat Clear Calc Not Reportable Estimated GFR > 60 Glucose 85 Uric Acid 6.9 Calcium 9.6 Total Bilirubin 0.7 AST 47 H ALT 60 H Alkaline Phosphatase 207 H Total Protein 8.0 Albumin 3.9 RPR Non-reactive HIV 1&2 Ab/P24 Ag 4thGn Negative Blood Type A Positive Antibody Screen Negative OB - PN A/P Assessment and Plan (1) Vaginal delivery: Code(s): O80 - Encounter for full-term uncomplicated delivery Status: Acute Plan day: 1 Plan: routine care and discharge home (this PM) Comments: - PO pain meds - Regular diet - Ambulation and hydration encouraged - Pelvic rest; take meds as prescribed - ER return precautions: fever, n/v/abd pain, bleeding, HTN Time Spent With Patient Time: Total time spent is greater than 50% in coordination of care (as documented) at patient's floor/unit and/or counseling patient: Review of Systems 2 Constitutional: Constitutional: Denies chills, Denies fever(s) and Denies headache(s) Eyes: Eyes: Denies change in vision ENT: Denies dizziness and Denies headache(s) Cardiovascular: Cardiovascular: Denies chest pain, Denies palpitations and Denies dyspnea Respiratory: Respiratory: Denies cough and Denies dyspnea Gastrointestinal: Gastrointestinal: Denies nausea and Denies vomiting Neurologic: Denies dizziness and Denies headache(s) Endocrine: Endocrine: Denies palpitations Exam 2 Const: General: cooperative, comfortable and no acute distress O rientation/consciousness: patient oriented x3 Resp: Effort & Inspection: normal respiratory effort Auscultation: clear to auscultation bilaterally Cardio: Rate: regular rate GI: Inspection: non-distended GI Palp: No abdominal tenderness and Yes Soft to palpation Auscultation: normal bowel sounds : Other: fundus firm Skin: General skin exam: normal color Neuro: General: patient oriented x3 Extrem: General: normal to inspection Psych: Appearance: grossly normal Affect: normal affect Attitude: c ooperative
--- NOTE | 2024-08-08 09:20 | P.DS_ITS ---
DS: Admitting Diagnosis Discharge Date 08/08/24 Admitting Diagnosis active labor at term DS: Discharge Diagnosis Discharge Diagnosis (1) Vaginal delivery: Code(s): O80 - Encounter for full-term uncomplicated delivery Status: Acute OB - DS: Summary OB Procedures : NST, PIH Mgmt and Ultrasound OB Procedures Intrapartum: Spontaneous Vag Delivery OB Procedures: : None Peripartum Data Infant Delivery Method: Natural Vaginal Laceration Description: None Episiotomy description: None complications: none 1: Gender: Male Disposition of : home Status at Discharge Functional status at discharge: independent ambulation Overall status at discharge: patient is back to baseline Time Spent with Patient Time attestation: Total time spent providing and/or coordinating discharge services: Exam Const: General: cooperative, comfortable and no acute distress Nutritional Appearance: obese Orientation/consciousness: patient oriented x3 Resp: Effort & Inspection: normal respiratory effort Auscultation: clear to auscultation bilaterally Cardio: Rate: regular rate GI: Inspection: non-distended GI Palp: No abdominal tenderness and Yes Soft to palpation Auscultation: normal bowel sounds : Other: fundus firm Skin: General skin exam: normal color Neuro: General: patient oriented x3 Extrem: General: normal to inspection Psych: Appearance: grossly normal Affect: normal affect Attitude: cooperative DS: Data Data Completed and Pending Labs on day of discharge: Labs from last 24 hours 08/08/24 08/07/24 04:46 09:28 WBC 8.2 RBC 4.58 Hgb 10.8 L 12.2 Hct 33.5 L 37.0 MCV 80.8 MCH 26.6 MCHC 33.0 RDW 14.0 Plt Count 182 MPV 12.6 H Immature Gran % (Auto) 0.4 Neut % (Auto) 68.3 Lymph % (Auto) 24.5 Stone % (Auto) 6.2 Eos % (Auto) 0.2 Baso % (Auto) 0.4 Lymph # (Auto) 2.01 Stone # (Auto) 0.5 Eos # (Auto) 0.0 Baso # (Auto) 0.0 Abs Immat Gran (auto) 0.03 Absolute Neuts (auto) 5.6 Absolute Nucleated RBC 0.000 Nucleated RBC % 0.0 Sodium 135 L Potassium 4.0 Chloride 109 H Carbon Dioxide 19 L Anion Gap 7 BUN 9 Creatinine 0.70 Estim Creat Clear Calc Not Reportable Estimated GFR > 60 Glucose 85 Uric Acid 6.9 Calcium 9.6 Total Bilirubin 0.7 AST 47 H ALT 60 H Alkaline Phosphatase 207 H Total Protein 8.0 Albumin 3.9 RPR Non-reactive HIV 1&2 Ab/P24 Ag 4thGn Negative Blood Type A Positive Antibody Screen Negative Discharge Plan Discharge Attending physician on discharge: Chela Carmen Discharging Clinician: Chela Carmen Activity: may shower and pelvic rest Diet: regular Patient Instructions: Vaginal Delivery (DC) Patient Language: Dominican Follow-up/Referrals: Brien Kasper MD [Physician] - Call for Appointment Discharge Medications: New acetaminophen 325 mg Tablet 650 mg PO Q6H PRN (Reason: Mild Pain (1-3) Or Headache) Qty: 60 0RF docusate sodium 100 mg Capsule 100 mg PO BID PRN (Reason: Constipation) Qty: 60 0RF ibuprofen 600 mg Tablet 600 mg PO Q6H PRN (Reason: Cramping) Qty: 40 0RF Continued ferrous sulfate 325 mg (65 mg iron) tablet 325 mg PO DAILY vit-ferrous sulfat-FA 27 mg iron- 0.8 mg Tablet 1 tablet PO DAILY nitrofurantoin monohyd/m-cryst [Macrobid] 100 mg Capsule 100 mg PO Q12H Qty: 10 0RF Rx Instructions: must administer with a meal/food Date of admission: 08/07/24 08:50 Primary Care Provider: UNKNOWN,DOCTOR Admitting Provider: Brien Kasper Attending physician on admission: Brien Kasper Condition: Stable
--- NOTE | 2024-08-08 10:03 | WPDANLDPN2 ---
Anes-Prog Note L&D Date/Time: 08/08/24 10:03 Comfortable throughout: labor and delivery Neuraxial method: epidural Epidural/Spinal procedure site: clean & non-tender Neuro status: Neuro function grossly intact. Vital Signs: Last Vital Signs Temp 97.6 F 08/08/24 07:38 Pulse 86 08/08/24 07:38 Resp 18 08/08/24 07:38 BP 132/95 H 08/08/24 07:38 Pulse Ox 100 08/08/24 07:38 O2 Del Method Room Air 08/07/24 19:15 Pain score (VAS): 0 I/O: Intake & Output 08/07/24 08/08/24 08/08/24 23:59 07:59 15:59 Intake Total 300 Balance 300 Patient feedback: Patient satisfied with anesthetic care.
[2024-08-10 10:32] VITALS: BP 126/86; PULSE 93; RESP 16; TEMP 37.2; O2SAT 99
== END 2024-08-08 17:37 | disposition home or self-care (01) | DRG 560 ==
LOC: ANHLDR 09:34 → ANHOB2 08-08 08:48 → ANHLDR 08-11 08:17
PROVIDERS: Admitting Provider Obstetrics & Gynecology; Visit Provider Obstetrics & Gynecology
DX: O35.BXX0 Maternal care for other (suspected) fetal abnormality and damage, fetal cardiac anomalies, not applicable or unspecified (principal); Z37.0 Single live birth; Z3A.39 39 weeks gestation of pregnancy
CPT/HCPCS: 36415; 80053; 84550; 85014; 85018; 85025; 86592; 86703; 86850; 86900; 86901; A9270; G0432; J2405; J2590; J2795; J3010; J7120

== ENCOUNTER 2025-02-03 15:34 | Emergency (ER) | payer OTHER, SELFPAY ==
--- NOTE | ~2025-02-03 | CT_ITS ---
EXAMINATION: CT brain wo con DATE: 02/03/2025 16:58 INDICATION: Headache post head injury TECHNIQUE: Computed tomography (CT) of the head was performed without intravenous contrast. Sagittal and coronal reconstructions were performed. The mA was adjusted according to patient size. Iterative reconstruction technique was employed. The dose-length product was 605.33 mGy-cm. COMPARISON: None FINDINGS: No fracture. No acute intracranial hemorrhage, acute infarction or abnormal extra axial fluid collect ion. Ventricles are normal and symmetric. No mass/mass effect. Changes of left intraocular lens repla cement. The orbits, paranasal sinuses and mastoid air cells are normal. IMPRESSION: 1. Normal brain. No acute intracranial process. Reviewed, dictated and finalized at location A.
--- NOTE | ~2025-02-03 | CT_ITS ---
EXAMINATION: CT cervical spine wo con DATE: 02/03/2025 16:58 INDICATION: Posterior head injury TECHNIQUE: Computed tomography (CT) of the cervical spine was performed without intravenous contrast. Automated exposure control and iterative reconstruction technique were employed. The dose-length pro duct was 397.85 mGy-cm. COMPARISON: None FINDINGS: Likely positional mild reversal of the normal cervical lordosis. Atlantoaxial articulation is normal. Vertebral body heights are normal. No fracture. Disc heights are normal. No central canal stenosis. Cervical uncovertebral and facet joints are normal. No neural foraminal stenosis. Cervical soft tissu es are unremarkable. Visualized apices of lungs are clear. IMPRESSION: 1. . Additional mild reversal of the normal cervical lordosis. No other osseous abnormality. Reviewed, dictated and finalized at location A.
[2025-02-03 15:36] VITALS: BP 155/89; PULSE 99; RESP 16; TEMP 36.6; O2SAT 100
--- NOTE | 2025-02-03 16:42 | ED.HEATRA ---
HPI - Head Injury General Chief complaint: Head Injury Stated complaint: kneed in back of head Time Seen by Provider: 02/03/25 16:20 Source: patient Mode of arrival: ambulatory Limitations: no limitations History of Present Illness HPI Narrative: Patient is a 24-year-old female who presents the ED with report of a head injury. Patient reports she was accidentally kneed in the base of her skull last night by her significant other while they were wrestling. She reports today, she has had headache, intermittent nausea/dizziness, neck pain. Prompted here for further evaluation. She does report that lights seem brighter than usual, but otherwise denies vision changes. Denies focal weakness or numbness. Denies syncope. Denies LOC. Related Data Allergies Allergy/AdvReac Type Severity Reaction Status Date / Time No Known Allergies Allergy Verified 12/18/24 13:20 Review of Systems Review of Systems: All systems reviewed & are unremarkable except as noted in HPI. All systems reviewed & are unremarkable except as noted in HPI and below PMFSH Surgical History Surgical History H/O eye surgery Family History Family History Father Diabetes mellitus Father Hypertension Sibling Asthma Social History Social History Smoking status: Former smoker Additional smoking assessment comments: social smoker, quit a long time ago. Substance use: never Do You Feel Safe in your Home?: Yes Lack of Transportation: No Lack of Food: Never True Current Housing: I Have Housing Concerned About Future Housing: No Difficulty Paying Gas/Electric Bills: No Difficulty Paying for Meds: No Currently Unemployed: No Education: High School Diploma/GED Difficulty w/ Childcare or Family Care: No Spiritual care concerns: No Exam Narrative: GENERAL: Well appearing, well-nourished, non-toxic, in no acute distress. HEAD: Normocephalic, atraumatic. No contusions. Mild tenderness throughout right occipital region. NECK: Mild TTP throughout midline cervical spine/R paraspinal musculature. No palpable bony deformities or step offs. EYES: PERRL/EOMI, conjunctiva clear, no nystagmus RESPIRATORY: Airway patent, respirations nonlabored. CARDIOVASCULAR: Regular rate and rhythm MUSCULOSKELETAL: Moves all extremities. No gross deformities. SKIN: Warm, dry, normal color. NEURO: A&O X3. Speech clear. Cranial nerves II-XII grossly intact. Steady gait. No ataxic movements. No focal deficits. PSYCHIATRIC: Appropriate mood and affect. Normal interaction. Course Vital Signs Vital signs: Vital Signs Temperature 98 F 02/03/25 15:36 Pulse Rate 99 02/03/25 15:36 Respiratory Rate 16 02/03/25 15:36 Blood Pressure 155/89 H 02/03/25 15:36 Pulse Oximetry 100 02/03/25 15:36 Temperature 98 F 02/03/25 15:36 Pulse Rate 99 02/03/25 15:36 Respiratory Rate 16 02/03/25 15:36 Blood Pressure 155/89 H 02/03/25 15:36 Pulse Oximetry 100 02/03/25 15:36 MDM - Head Injury MDM Narrative Medical decision making narrative: Patient presented to ED with head injury that occurred yesterday. Reporting mild nausea/dizziness. Vital signs are stable upon arrival. Patient is neurologically intact. No focal deficits. In no acute distress. CT brain and cervical spine were obtained and negative for traumatic findings. Show positional straightening of spine. Discussed possibility of mild concussion, management of such. Will discharge with short course of nausea medication. Advised close follow-up with PCP for further evaluation. Given strict return precautions. She agrees with plan. Discharged in stable condition. Medical Records Attestation: I reviewed the patient's medical records. Imaging Data Attestation: I personally reviewed and interpreted this imaging study as follows: Radiologist's impression: ITS Impressions Head CT 02/03/25 17:00 IMPRESSION: 1. Normal brain. No acute intracranial process. Cervical Spine CT 02/03/25 17:04 IMPRESSION: 1. . Additional mild reversal of the normal cervical lordosis. No other osseous abnormality. Discharge Plan Discharge Clinical Impression: Closed head injury Qualifiers: Encounter type: initial encounter Qualified Code(s): S09.90XA - Unspecified injury of head, initial encounter Patient Disposition: Home Condition: Stable Instructions: Antibiotic Form, Concussion (ED), Head Injury (ED) Additional Instructions: Your imaging did not show any abnormalities. It is possible you may have sustained a mild concussion. Continue Tylenol and ibuprofen as needed for pain. Utilize Zofran as needed for nausea. Recommend plenty of rest. Recommend low light/low stimulus environment, limiting screen time. Follow-up with your primary care doctor for further evaluation as needed. Return to the ED if you experience worsening or severe pain, severe dizziness, passing out, unable to keep down food or drink, vision changes, numbness or weakness of arm or leg, or any other symptoms of concern. Patient Language: Citizen Of [place] Prescriptions: New ondansetron 4 mg tablet,disintegrating 4 mg PO Q8H PRN (Reason: nausea and vomiting) Qty: 15 0RF No Action norethindrone-e.estradiol-iron [ FE 09/14 (28)] 1 mg-20 mcg (21)/75 mg (7) tablet 1 tablet PO DAILY Qty: 84 3RF escitalopram oxalate 10 mg tablet 10 mg PO DAILY Qty: 30 1RF Follow-up/Referrals: UNKNOWN,DOCTOR [Primary Care Provider] - Time of Disposition: 17:10
[2025-02-03] MEDS: ACETAMINOPHEN 500 MG TABLET 1000 MG PO (17:26)
--- OUTSIDE RECORDS SUMMARY | 2025-02-03 17:47 | XMS_ITS | Clinical Summary ---
Author Organization [facility] Address [address] [place] [address] Phone Care Team Providers Care Plater Supervisor Name Role Phone Unavailable Primary Care Provider Unavailabl e Active Problems Problem Noted Date Diagnosed Date cardiac anomaly affecting , antep artum 04/23/2024 Comments Yes Encounters Date Type Department Care Team Description 11/24/2024 External Device Data STL ABSTRACTION Provider, Abstract from Last 3 Months Social History Tobacco Use Types Packs/Day Years Used Date Smoking Tobacco: Never Assessed Comments Yes Sex and Gender Information Value Date Recorded Sex Assigned at Not on file Legal Sex Female 3:16 PM CDT Gender Identity Not on file Sexual Orientation Not on file Last Filed Vital Signs Vital Sign Reading Time Taken Comments Blood Pressure 125/77 04/23/2024 2:10 PM CDT PUL SE: 86 Pulse - - Temperature - - Respiratory Rate - - Oxygen Saturation - - Inhaled Oxygen Concentration - - Weight 81.6 kg (180 lb) 04/23/2024 2:10 PM CDT Height 162.6 cm (5' 4) 04/23/2024 2:10 PM CDT Body Mass Index 30.9 04/23/2024 2:10 PM CDT Plan of Treatment Health Maintenance Due Date Last Done Comments HPV VACCINES (1 - 3-dose series) 2013 DTAP/TDAP/TD VACCINES (1 - Tdap) 2017 HEPATITIS B VACCINES (1 of 3 - 19+ 3-dose series) 03/2017 CERVICAL CANCER SCREENING 2019 HPV/Cotest (21-29) 2019 PAP SMEAR 2019 INFLUENZA VACCINE (#1) 2024 RSV VACCINE (60+ or ) (1 - 1-dose 75+ series) 2073 Insurance [employer] [place]
--- OUTSIDE RECORDS SUMMARY | 2025-02-03 17:47 | XMS_ITS | Referral Summary ---
Author Organization [facility] Address [address] [place] [address] Care Team Providers Care Clinical Psychologist Name Role Phone No, Physician Primary Care Provider [phone] Allergies No known active allergies Medications meclizine (ANTIVERT) 25 mg tablet Take 1 tablet (25 mg total) by mouth 3 (three) times a day as needed for dizziness 30 tablet 3 Active ondansetron ODT (ZOFRAN-ODT) 4 mg disintegrating tablet Dissolve 1 tablet oral every 4 hours as needed for nausea or vomiting. 15 tablet 3 Active albuterol HFA (PROVENTIL HFA,VENTOLIN HFA,PROAIR HFA) 90 mcg/actuation inhaler Inhale 2 puffs every 4 (four) hours as needed for wheezing 8.5 g 3 Active Active Problems Problem Noted Date Diagnosed Date Positive urine test 09/29/2018 Social History Tobacco Use Types Packs/Day Years Used Date Smoking Tobacco: Every Day Smokeless Tobacco: Never Alcohol Use Standard Drinks/Week Comments No 0 (1 standard drink = 0.6 oz pur e alcohol) Personal Safety Answer Date Recorded Getting School Help Needed Not on file 01/24 Comments Unknown Sex and Gender Information Value Date Recorded Sex Assigned at Not on file 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 Gender Identity Not on file Sexual Orientation Not on file Last Filed Vital Signs Vital Sign Reading Time Taken Comments Blood Pressure 114/60 12/28/2022 1:00 AM CDT Pulse 74 12/28/2022 1:00 AM CDT Temperature 36.9 C (98.4 F) 12/27/2022 9:57 PM CDT Respiratory Rate 17 12/28/2022 1:00 AM CDT Oxygen Saturation 100% 12/28/2022 1:00 AM CDT Inhaled Oxygen Concentration - - Weight 79.4 kg (175 lb) 12/27/2022 9:57 PM CDT Height 165.1 cm (5' 5) 12/27/2022 9:57 PM CDT Body Mass Index 29.12 12/27/2022 9:57 PM CDT Plan of Treatment Not on file Insurance Care Teams Clinical Psychologist Relationship Specialty Start Date End Date No, Physician PCP - General 09/29/18
--- OUTSIDE RECORDS SUMMARY | 2025-02-03 17:47 | XMS_ITS | Encounter Summary ---
Author Organization [facility] Address [address] [place] [address] Care Team Providers Care Dinkey Operator Slate Name Role Phone Unavailable Primary Care Provider Unavailabl e Encounter Details Date Type Department Care Team (Late st Contact Info) Description 08/09/2024 Hospital Encounter [facility] Labor & [address] [place] [address] Gato Kasper MD [address] [place] [address] Social History Tobacco Use Types Packs/Day Years Used Date Smoking Tobacco: Never Assessed Comments Yes Sex and Gender Information Value Date Recorded Sex Assigned at Not on file Legal Sex Female 3:16 PM CDT Gender Identity Not on file Sexual Orientation Not on file documented as of this encounter Progress Notes * Mirtha Pruett RN - 07/22/2024 11:49 AM CST Care Team Delivery Planning...updated on 07/22/24 Patient: Madeline Cornell E#: [id number] : 2000 OB: Dr. Kasper BRENDEN: 08/09/24 /Para: Diagnosis: Apical VSD Estimated Weight: 2989g at 37w3d (38th percentile) Delivery Plan: Based on the usual obstetric indications Plans to deliver at [facility] in [place], [place] with Dr. Kasper Expected direct admit to NICU? No, anticipate admission to the full term nursery if born at term follow up: echocardiogram at [facility] on baby per Dr. Poe Maternal Medicine. This can be after baby is discharged home from the hospital within 1-[address] Simons's office number is [phone] if there are any concerns. Consults completed: Screening ECHO completed on 04/23/24 Care Consult completed on 04/23/[address] Poe Maternal Medicine Please notify [facility]CT upon maternal admission - okay to use JellyCloud to notify on- call FCT RN (group chat name is [facility] Care Team located under group tab) Mirtha Pruett RN, BSN Care Alteration Tailor Apprentice [phone] INE OPERATIONS AGENT * Ronnie Bey RN - 05/15/2024 12:04 PM CDT Care Team Note Primary Coordinator: Ronnie Bey RN Patient name: Madeline Cornell Gestational age: 27w5d on 05/15/2024 Current diagnosis: Apical VSD Ultrasound reviewed with: Dr. Dowell Delivery plan: Based on the usual obstetric indications. Plans to deliver at [facility] in [facility] with Dr. Kasper Expected direct admit to NICU? No, anticipate admission to the full term nursery if born at term follow up: echocardiogram at [facility] on baby per Dr. Poe Maternal Medicine. This can be after baby is discharged home from the hospital within 1-[address] Simons's office number is [phone] if there are any concerns. Completed consults: Screening ECHO completed on 04/23/24 Care Consult completed on 04/23/[address] Poe Maternal Medicine To do: Follow up growth ultrasound in [address] Dowell went over today's ultrasound findings with Madeline. Baby is measuring in the 47th percentile and the amniotic fluid level is normal. Dr. Dowell recommends the following testing schedule: growth in 4 weeks. Ronnie Bey RN, BSN Care Alteration Tailor Apprentice [phone] documented in this encounter Plan of Treatment Not on file documented as of this encounter Visit Diagnoses Not on filedocumented in this encounter
--- OUTSIDE RECORDS SUMMARY | 2025-02-03 17:47 | XMS_ITS | Clinical Summary ---
Author Organization 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 Gender Identity Not on file Sexual Orientation Not on file Obstetrics History Last Filed Vital Signs Vital Sign Reading [...] 12/27/2022 9:57 PM CDT Plan of Treatment Health Maintenance Due Date Last Done Comments Cervical Cancer Screening 2000 Depression Screening 1998 Hepatitis C Screening 2000 DTaP/Tdap/Td Vaccine (6 - Tdap) 2009 01/21/2003, 06/01/2002, 1998, Additional history exists Varicella Vaccines (1 of 2 - 13+ 2-dose series) 2011 HPV Vaccines (1 - 3-dose series) 2013 Regular Well Visit/Exam 18-64 2016 Pneumococcal vaccine <65 (1 of 2 - PCV) 2017 Influenza Vaccine (Season Ended) 2025 Hepatitis B Screening Completed 2000 , [birth year] [address] [place] [address] [facility] Care Teams Fish Seiner Relationship Specialty Start Date End Date No, Physician PCP - General 09/29/18
--- OUTSIDE RECORDS SUMMARY | 2025-02-03 17:47 | XMS_ITS | Encounter Summary ---
Author Organization [facility] Address [address] [place] [address] Care Team Providers Care Curing Room Worker Name Role Phone Unavailable Primary Care Provider Unavailabl e Encounter Details Date Type Department Care Team (Late st Contact Info) Description 03/12/2024 Abstract [facility] Maternal and Medicine - [facility] [address] [facility] [place] [address] Mariola Muñiz Social History Tobacco Use Types Packs/Day Years Used Date Smoking Tobacco: Never Assessed Comments Unknown Sex and Gender Information Value Date Recorded Sex Assigned at Not on file Legal Sex Female 3:16 PM CDT Gender Identity Not on file Sexual Orientation Not on file documented as of this encounter Plan of Treatment Not on file documented as of this encounter Visit Diagnoses Not on filedocumented in this encounter
--- OUTSIDE RECORDS SUMMARY | 2025-02-03 18:18 | XMS_ITS | Clinical Summary ---
Author Organization 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
--- OUTSIDE RECORDS SUMMARY | 2025-02-03 18:18 | XMS_ITS | Referral Summary ---
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
--- OUTSIDE RECORDS SUMMARY | 2025-02-03 18:18 | XMS_ITS | Encounter Summary ---
Author Organization [facility] Address [address] [place] [address] Care Team Providers Care Jewellery Designer Name Role Phone Unavailable Primary Care Provider Unavailabl e Encounter Details Date Type Department Care Team (Late st Contact Info) Description 08/09/2024 Hospital Encounter [facility] Labor & [address] [place] [address] Gato Kasper MD [address] [place] [address] Social History Tobacco Use Types [...] Planning...updated on 07/22/24 Patient: Madeline Cornell E#: [id number] : 2000 OB: Dr. Kasper BRENDEN: 08/09/24 /Para: Diagnosis: Apical VSD Estimated Weight: 2989g at 37w3d (38th percentile) Delivery Plan: Based on the usual obstetric indications Plans to deliver at [facility] in [place], [place] with Dr. Kasper Expected direct admit to NICU? No, anticipate admission to the full term nursery if born at term follow up: echocardiogram at [facility] on baby per Dr. Poe Maternal Medicine. This can be after baby is discharged home from the hospital within 1-[address] Simons's office number is [phone] if there are any concerns. Consults completed: Screening ECHO completed on 04/23/24 Care Consult completed on 04/23/[address] Poe Maternal Medicine Please notify [facility]CT upon maternal admission - okay to use Melon #[email or web address] to notify on- call FCT RN (group chat name is [facility] Care Team located under group tab) Mirtha Pruett RN, BSN Care Riddler Operator [phone] COOK * Ronnie Bey RN - 05/15/2024 12:04 PM CDT Care Team Note Primary Coordinator: Ronnie Bey RN Patient name: Madeline Cornell Gestational age: 27w5d on 05/15/2024 Current diagnosis: Apical VSD Ultrasound reviewed with: Dr. Dowell Delivery plan: Based on the usual obstetric indications. Plans to deliver at [facility] in [facility] with Dr. Kasper Expected direct admit to NICU? No, anticipate admission to the full term nursery if born at term follow up: echocardiogram at [facility] on baby per Dr. Poe Maternal Medicine. This can be after baby is discharged home from the hospital within 1-[address] Simons's office number is [phone] if there are any concerns. Completed consults: [...] 4 weeks. Ronnie Bey RN, BSN Care Riddler Operator [phone] documented in this encounter Plan of Treatment Not on file documented as of this encounter Visit Diagnoses Not on filedocumented in this encounter
--- OUTSIDE RECORDS SUMMARY | 2025-02-03 18:18 | XMS_ITS | Clinical Summary ---
Author Organization [facility] Address [address] [address] Phone Care Team Providers Care Boatswains Mate Name Role Phone Unavailable Primary Care Provider [...]
--- OUTSIDE RECORDS SUMMARY | 2025-02-03 18:18 | XMS_ITS | Encounter Summary ---
Author Organization [facility] Address [address] [place] [address] Care Team Providers Care Poultice Machine Operator Name Role Phone Unavailable Primary Care Provider Unavailabl e Encounter Details Date Type Department Care Team (Late st Contact Info) Description 03/12/2024 Abstract [facility] Maternal and Medicine - [facility] [address] [place] [address] Mariola Muñiz Social History Tobacco [...]
== END 2025-02-03 17:27 | disposition home or self-care (01) ==
LOC: ANHED 17:22
PROVIDERS: Emergency Provider Physician Assistant
DX: S09.90XA Unspecified injury of head, initial encounter (principal); Z87.891 Personal history of nicotine dependence; X58.XXXA Exposure to other specified factors, initial encounter; Y93.83 Activity, rough housing and horseplay
CPT/HCPCS: 70450; 72125; 99284; A9270

== ENCOUNTER 2025-02-08 16:29 | Emergency (ER) | payer OTHER, SELFPAY ==
--- NOTE | ~2025-02-08 | XR_ITS ---
XR foot LT min 3V Ordering provider: Elvira Banerjee PA-C History: . fall, rolled ankle, SWELLING . Comparison: None. FINDINGS: BONES: No acute fracture or dislocation. JOINT SPACES: Normal. No tarsal coalition. SOFT TISSUES: Normal. IMPRESSION: No acute osseous abnormality left foot. Reviewed, dictated and finalized at location A.
--- NOTE | ~2025-02-08 | XR_ITS ---
XR ankle LT min 3V Ordering provider: Elvira Banerjee PA-C History: . fall, rolled ankle . Comparison: None. FINDINGS: BONES: No acute fracture or dislocation. JOINT SPACES: The ankle mortise is normal. SOFT TISSUES: Normal. IMPRESSION: No acute osseous abnormality left ankle. Reviewed, dictated and finalized at location A.
[2025-02-08 16:46] VITALS: BP 144/93; PULSE 104; RESP 18; O2SAT 95
--- NOTE | 2025-02-08 16:52 | ED.LOWEXIN ---
HPI - Extremity Injury (Lower) General Chief Complaint: Extremity Injury, Lower Stated Complaint: right ankle pain Time Seen by Provider: 02/08/25 16:51 Source: patient Mode of arrival: ambulatory Limitations: no limitations History of Present Illness HPI Narrative: Patient is a 24-year-old female who presents the ED with report of left ankle pain. Patient reports she tripped and fell down the last step of 1st stair, rolling her left ankle. She complains of pain and swelling to her left lateral ankle. Unable to bear weight. Denies numbness. Denies any other injuries. Denies head injury or LOC. Related Data Allergies Allergy/AdvReac Type Severity Reaction Status Date / Time No Known Allergies Allergy Verified 12/18/24 13:20 Review of Systems Review of Systems: All systems reviewed & are unremarkable except as noted in HPI. All systems reviewed & are unremarkable except as noted in HPI and below PMFSH Surgical History Surgical History H/O eye surgery Family History Family History Father Diabetes mellitus Father Hypertension Sibling Asthma Social History Social History Smoking status: Former smoker Additional smoking assessment comments: social smoker, quit a long time ago. Substance use: never Do You Feel Safe in your Home?: Yes Lack of Transportation: No Lack of Food: Never True Current Housing: I Have Housing Concerned About Future Housing: No Difficulty Paying Gas/Electric Bills: No Difficulty Paying for Meds: No Currently Unemployed: No Education: High School Diploma/GED Difficulty w/ Childcare or Family Care: No Spiritual care concerns: No Exam Narrative: GENERAL: Well appearing, well-nourished, non-toxic, in no acute distress. HEAD: Normocephalic, atraumatic. RESPIRATORY: Airway patent, respirations nonlabored. CARDIOVASCULAR: Regular rate and rhythm. Pedal pulses intact and easily palpable. MUSCULOSKELETAL: Moves all extremities. Moderate swelling to left lateral foot/anterior ankle with focal tenderness to palpation. No significant bruising. Sensation intact. Left severe tenderness over lateral malleoli. SKIN: Warm, dry, normal color. NEURO: A&O X3. Speech clear. PSYCHIATRIC: Appropriate mood and affect. Normal interaction. Course Vital Signs Vital signs: Vital Signs Pulse Rate 104 H 02/08/25 16:46 Respiratory Rate 18 02/08/25 16:46 Blood Pressure 144/93 H 02/08/25 16:46 Pulse Oximetry 95 02/08/25 16:46 Oxygen Delivery Room Air 02/08/25 16:46 Pulse Rate 104 H 02/08/25 16:46 Respiratory Rate 18 02/08/25 16:46 Blood Pressure 144/93 H 02/08/25 16:46 Pulse Oximetry 95 02/08/25 16:46 Oxygen Delivery Room Air 02/08/25 16:46 MDM - Extremity Injury (Lower) MDM Narrative Medical decision making narrative: Patient?s injury is consistent with musculoskeletal etiology. No signs of neurologic or vascular compromise on physical examination. Compartments are soft without signs of compartment syndrome. XR left foot/ankle negative for fracture. Pain is consistent with ankle sprain. Patient is felt to be stable for discharge home and further outpatient management and treatment. Given Hammad bandage and crutches in the ED. Discussed rice therapy. Will be referred to orthopedics for further evaluation if needed. Given return precautions. Discharged in stable condition. Medical Records Attestation: I reviewed the patient's medical records. Imaging Data Attestation: I personally reviewed and interpreted this imaging study as follows: Radiologist's impression: ITS Impressions Ankle X-Ray 02/08/25 17:13 IMPRESSION: No acute osseous abnormality left ankle. Foot X-Ray 02/08/25 17:14 IMPRESSION: No acute osseous abnormality left foot. Discharge Plan Discharge Clinical Impression: Sprain of left ankle Qualifiers: Encounter type: initial encounter Involved ligament of ankle: unspecified ligament Qualified Code(s): S93.402A - Sprain of unspecified ligament of left ankle, initial encounter Patient Disposition: Home Condition: Stable Instructions: Antibiotic Form, Ankle Sprain (ED), P.R.I.C.E. Treatment (ED) Additional Instructions: Your imaging did not show any evidence of fracture. You likely sprained your ankle. Recommend frequent icing to ankle, Hammad bandage for compression and support, elevate leg whenever able. Recommend Tylenol and ibuprofen as needed for pain. Follow-up with orthopedics for further evaluation if needed. Return for new or worsening concerns. Patient Language: Polish Prescriptions: No Action norethindrone-e.estradiol-iron [09/14 (28)] 1 mg-20 mcg (21)/75 mg (7) tablet 1 tablet PO DAILY Qty: 84 3RF escitalopram oxalate 10 mg tablet 10 mg PO DAILY Qty: 30 1RF ondansetron 4 mg tablet,disintegrating 4 mg PO Q8H PRN (Reason: nausea and vomiting) Qty: 15 0RF Follow-up/Referrals: Russ Cobian MD [Physician] - (ORTHOPEDICS) UNKNOWN,DOCTOR [Non-Staff] - Time of Disposition: 17:22
--- OUTSIDE RECORDS SUMMARY | 2025-02-08 17:10 | XMS_ITS | Referral Summary ---
Author Organization [facility] Address [address] [place] [address] Care Team Providers Care Distance Learning Administrator Name Role Phone No, Physician Primary Care Provider [phone] Allergies No known active allergies Medications meclizine [...] on file Legal Sex Female 6:47 AM TALENT ADVISOR Gender Identity Not on file Sexual Orientation [...] Treatment Not on file Insurance Care Teams Distance Learning Administrator Relationship Specialty Start Date End Date No, Physician PCP - General 09/29/18
--- OUTSIDE RECORDS SUMMARY | 2025-02-08 17:10 | XMS_ITS | Encounter Summary ---
Author Organization [facility] Address [address] [place] [address] Care Team Providers Care Agricultural Services Director Name Role Phone Unavailable Primary Care Provider Unavailabl e Encounter Details Date Type Department Care Team (Late st Contact Info) Description 03/12/2024 Abstract [facility] Maternal and Medicine - [facility] [address] [place] [address] Mariola Muñiz Social History Tobacco [...]
--- OUTSIDE RECORDS SUMMARY | 2025-02-08 17:10 | XMS_ITS | Encounter Summary ---
Author Organization [facility] Address [address] [place] [address] Care Team Providers Care Flying Teacher Name Role Phone Unavailable Primary Care Provider Unavailabl e Encounter Details Date Type Department Care Team (Late st Contact Info) Description 08/09/2024 Hospital Encounter [facility] Labor & [address] [place] [address] Gato Kasper MD [address] [place] [address] Social History Tobacco Use Types [...] Planning...updated on 07/22/24 Patient: Madeline Cornell E#: [id number] : 2000 OB: Dr. Kasper BRENDEN: 08/09/24 /Para: Diagnosis: Apical VSD Estimated Weight: 2989g at 37w3d (38th percentile) Delivery Plan: Based on the usual obstetric indications [facility] [place], [place] with Dr. Kasper Expected direct admit to NICU? No, anticipate admission to the full term nursery if born at term follow up: echocardiogram at [facility] on baby per Dr. Poe Maternal Medicine. This can be after baby is discharged home from the hospital within 1-[address] Simons's office number is [phone] if there are any concerns. Consults completed: Screening ECHO completed on 04/23/24 Care Consult completed on 04/23/[address] Poe Maternal Medicine Please notify FCT upon maternal admission - okay to use Chikka to notify on- call FCT RN (group chat name is [facility] Care Team located under group tab) Mirtha Pruett RN, BSN Care Vp Respiratory [phone] ARK CARPENTER * Ronnie Bey RN - 05/15/2024 12:04 PM CDT Care Team Note Primary Coordinator: Ronnie Bey RN Patient name: Madeline Cornell Gestational age: 27w5d on 05/15/2024 Current diagnosis: Apical VSD Ultrasound reviewed with: Dr. Dowell Delivery plan: Based on the usual obstetric indications. [facility] with Dr. Kasper Expected direct admit to NICU? No, anticipate admission to the full term nursery if born at term follow up: echocardiogram at [facility] on baby per Dr. Poe Maternal Medicine. This can be after baby is discharged home from the hospital within 1-[address] Simons's office number is [phone] if there are any concerns. Completed consults: [...] 4 weeks. Ronnie Bey RN, BSN Care Vp Respiratory [phone] documented in this encounter Plan of Treatment Not on file documented as of this encounter Visit Diagnoses Not on filedocumented in this encounter
--- OUTSIDE RECORDS SUMMARY | 2025-02-08 17:10 | XMS_ITS | Clinical Summary ---
Author Organization [facility] Address [address] [place] [address] Phone Care Team Providers Care Software Analyst Name Role Phone Unavailable Primary Care Provider [...]
--- OUTSIDE RECORDS SUMMARY | 2025-02-08 17:10 | XMS_ITS | Clinical Summary ---
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
--- OUTSIDE RECORDS SUMMARY | 2025-02-08 17:34 | XMS_ITS | Encounter Summary ---
Author Organization [facility] Address [address] [place] [address] Care Team Providers Care State Trooper Name Role Phone Unavailable Primary Care Provider Unavailabl e Encounter Details Date Type Department Care Team (Late st Contact Info) Description 03/12/2024 Abstract [facility] Maternal and Medicine - [facility] [address] [place] [address] Mariola Muñiz Social History Tobacco [...]
--- OUTSIDE RECORDS SUMMARY | 2025-02-08 17:34 | XMS_ITS | Referral Summary ---
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
--- OUTSIDE RECORDS SUMMARY | 2025-02-08 17:34 | XMS_ITS | Encounter Summary ---
Author Organization [facility] Address [address] [place] [address] Care Team Providers Care Recyclable Materials Distributor Name Role Phone Unavailable Primary Care Provider Unavailabl e Encounter Details Date Type Department Care Team (Late st Contact Info) Description 08/09/2024 Hospital Encounter [facility] Labor & [address] [place] [address] Gato Kasper MD [address] [place] [address] Social History Tobacco Use Types [...] Planning...updated on 07/22/24 Patient: Madeline Cornell E#: [id number] : 2000 OB: Dr. Kasper BRENDEN: 08/09/24 /Para: Diagnosis: Apical VSD Estimated Weight: 2989g at 37w3d (38th percentile) Delivery Plan: Based on the usual obstetric indications Plans to deliver at [facility] in [place], [place] with Dr. Kasper Expected direct admit to NICU? No, anticipate admission to the full term nursery if born at term follow up: echocardiogram at [facility] on baby per Dr. Poe Maternal Medicine. This can be after baby is discharged home from the hospital within 1-[address] Simons's office number is [phone] if there are any concerns. Consults completed: Screening ECHO completed on 04/23/24 Care Consult completed on 04/23/[address] Poe Maternal Medicine Please notify [facility]CT upon maternal admission - okay to use POPVOX to notify on- call FCT RN (group chat name is [facility] Care Team located under group tab) Mirtha Pruett RN, BSN Care Power Shovel Engineer [phone] CAGER * Ronnie Bey RN - 05/15/2024 12:04 PM CDT Care Team Note Primary Coordinator: Ronnie Bey RN Patient name: Madeline Cornell Gestational age: 27w5d on 05/15/2024 Current diagnosis: Apical VSD Ultrasound reviewed with: Dr. Dowell Delivery plan: Based on the usual obstetric indications. Plans to deliver at [facility] in [facility] with Dr. Kasper Expected direct admit to NICU? No, anticipate admission to the full term nursery if born at term follow up: echocardiogram at [facility] on baby per Dr. Poe Maternal Medicine. This can be after baby is discharged home from the hospital within 1-[address] Simons's office number is [phone] if there are any concerns. Completed consults: [...] 4 weeks. Ronnie Bey RN, BSN Care Power Shovel Engineer [phone] documented in this encounter Plan of Treatment Not on file documented as of this encounter Visit Diagnoses Not on filedocumented in this encounter
--- OUTSIDE RECORDS SUMMARY | 2025-02-08 17:34 | XMS_ITS | Clinical Summary ---
Author Organization [facility] Address [address] [place] [address] Phone Care Team Providers Care Tag Machine Operator Name Role Phone Unavailable Primary [...]
--- OUTSIDE RECORDS SUMMARY | 2025-02-08 17:34 | XMS_ITS | Clinical Summary ---
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
[2025-02-08] MEDS: KETOROLAC (*BKC) 60 MG/2 ML VIAL IM (17:35)
== END 2025-02-08 17:45 | disposition home or self-care (01) ==
LOC: ANHED 17:32
PROVIDERS: Emergency Provider Physician Assistant
DX: S93.402A Sprain of unspecified ligament of left ankle, initial encounter (principal); W10.9XXA Fall (on) (from) unspecified stairs and steps, initial encounter
CPT/HCPCS: 73610; 73630; 96372; 99283; J1885